=== PATIENT | female | born 1975 | race Caucasian/White ===

== ENCOUNTER 2018-10-27 16:06 | Outpatient (CLI) | payer MEDICAID ==
[2018-10-27 16:43] LABS: ADD MAN DIFF? NO
[2018-10-27 16:47] LABS: BASOPHILS % 0.3 % (0.0-2.0); EOSINOPHILS # 0.1 10^3/ul (0.0-0.5); EOSINOPHILS % 0.9 % (0.0-7.0); HEMATOCRIT 25.5 % (37.0-47.0); HEMOGLOBIN 7.6 g/dl (12.0-16.0); LYMPHOCYTES # 2.4 10^3/ul (0.8-2.9); LYMPHOCYTES % 26.4 % (15.0-51.0); MEAN CORPUSCULAR HEMOGLOBIN 20.4 pg (29.0-33.0); MEAN CORPUSCULAR HGB CONC 29.8 g/dl (32.0-37.0); MEAN CORPUSCULAR VOLUME 68.4 fl (82.0-101.0); MONOCYTE # 0.7 10^3/ul (0.3-0.9); MONOCYTES % 7.7 % (0.0-11.0); NEUTROPHIL # 5.9 10^3/ul (1.6-7.5); NEUTROPHILS % 64.2 % (39.0-77.0); PLATELET COUNT 319 10^3/UL (140-415); RED BLOOD COUNT 3.73 10^6/ul (4.20-5.40); RED CELL DISTRIBUTION WIDTH 17.5 % (11.5-14.5)
[2018-10-27 16:47] LABS: WHITE BLOOD COUNT 9.2 10^3/ul (4.8-10.8)
[2018-10-27 16:57] LABS: ADD UMIC YES; UR ASCORBIC ACID 40 mg/dL (NEGATIVE); UR BACTERIA FEW /HPF (NONE SEEN); UR BILIRUBIN (Dip) NEGATIVE (NEGATIVE); UR BLOOD (Dip) NEGATIVE (NEGATIVE); UR CLARITY CLOUDY (CLEAR); UR COLOR YELLOW (YELLOW); UR GLUCOSE (Dip) NEGATIVE (NEGATIVE); UR KETONES (Dip) 1+ mg/dL (NEGATIVE); UR LEUKOCYTE ESTERASE (Dip) NEGATIVE Leu/ul (NEGATIVE); UR NITRITE (Dip) NEGATIVE (NEGATIVE); UR RBC 1 /HPF (0-5); UR SPECIFIC GRAVITY (Dip) 1.018 (1.003-1.030); UR SQUAMOUS EPITHELIAL CELL MANY /HPF (FEW); UR TOTAL PROTEIN (Dip) NEGATIVE (NEGATIVE); UR UROBILINOGEN (Dip) NEGATIVE (NEGATIVE); UR WBC 21 /HPF (0-5)
[2018-10-27 17:06] LABS: INR 0.88; PT RATIO 0.9
[2018-10-27 17:07] LABS: PARTIAL THROMBOPLASTIN TIME 25.3 Sec (23.0-35.0)
[2018-10-27 17:09] LABS: ALANINE AMINOTRANSFERASE 17 IU/L (13-69); ALBUMIN 3.5 g/dl (3.3-4.9); ALBUMIN/GLOBULIN RATIO 0.94; ALKALINE PHOSPHATASE 105 IU/L (42-121); ANION GAP 9 (5-13); ASPARTATE AMINO TRANSFERASE 20 IU/L (15-46); BILIRUBIN,INDIRECT 0.3 mg/dl (0-1.1); BILIRUBIN,TOTAL 0.3 mg/dl (0.2-1.3); BLOOD UREA NITROGEN 15 mg/dl (7-20); CALCIUM 9.2 mg/dl (8.4-10.2); CARBON DIOXIDE 20 mmol/L (21-31); CHLORIDE 107 mmol/L (97-110); CREATININE 0.53 mg/dl (0.44-1.00); Estimated GFR > 60 mL/min (>60); GLUCOSE 92 mg/dl (70-220); POTASSIUM 4.1 mmol/L (3.5-5.1); SODIUM 136 mmol/L (135-144); TOTAL PROTEIN 7.2 g/dl (6.1-8.1); URIC ACID 2.9 mg/dl (3.1-7.9)
== END 2018-10-27 17:30 | disposition home or self-care (01) ==
LOC: OBT 16:06 → L-D 16:08 → OBT 17:30
DX: O13.3 Gestational [pregnancy-induced] hypertension without significant proteinuria, third trimester (principal); O24.419 Gestational diabetes mellitus in pregnancy, unspecified control; O36.8330 Maternal care for abnormalities of the fetal heart rate or rhythm, third trimester, not applicable or unspecified; O09.513 Supervision of elderly primigravida, third trimester; Z3A.34 34 weeks gestation of pregnancy
CPT/HCPCS: 76815; 76818; 80053; 81001; 84560; 85025; 85610; 85730

== ENCOUNTER 2018-10-29 09:50 | Inpatient (IN) | payer MEDICAID ==
[2018-10-29 11:47] LABS: ADD UMIC NO; UR ASCORBIC ACID 40 mg/dL (NEGATIVE); UR BACTERIA FEW /HPF (NONE SEEN); UR BILIRUBIN (Dip) NEGATIVE (NEGATIVE); UR BLOOD (Dip) NEGATIVE (NEGATIVE); UR CLARITY SLIGHTLY CLOUDY (CLEAR); UR COLOR AMBER (YELLOW); UR GLUCOSE (Dip) NEGATIVE (NEGATIVE); UR KETONES (Dip) 1+ mg/dL (NEGATIVE); UR LEUKOCYTE ESTERASE (Dip) NEGATIVE Leu/ul (NEGATIVE); UR MUCUS MODERATE /HPF (NONE SEEN); UR NITRITE (Dip) NEGATIVE (NEGATIVE); UR RBC 15 /HPF (0-5); UR SPECIFIC GRAVITY (Dip) 1.023 (1.003-1.030); UR SQUAMOUS EPITHELIAL CELL MODERATE /HPF (FEW); UR TOTAL PROTEIN (Dip) NEGATIVE (NEGATIVE); UR UROBILINOGEN (Dip) 2+ mg/dL (NEGATIVE); UR WBC 16 /HPF (0-5)
[2018-10-29 12:17] LABS: HEMOGLOBIN A1C 6.1 % (0-5.9)
[2018-10-29] MEDS ORDERED: DEXTROSE 50% 50 ML SYRINGE IV ×2 (14:30)
[2018-10-29] MEDS ORDERED: GLUCAGON 1 MG INJ IM (14:30)
[2018-10-29] MEDS ORDERED: GLUCOSE GEL 15 GRAM TUBE BUCCAL (14:30)
[2018-10-29] MEDS ORDERED: GLUCOSE GEL 15 GRAM TUBE PO ×2 (14:30)
[2018-10-29] MEDS: LACTATED RINGER'S 1,000 ML IV (17:28)
[2018-10-29 18:01] LABS: ALANINE AMINOTRANSFERASE 16 IU/L (13-69); ALBUMIN 3.3 g/dl (3.3-4.9); ALBUMIN/GLOBULIN RATIO 0.94; ALKALINE PHOSPHATASE 100 IU/L (42-121); ANION GAP 7 (5-13); ASPARTATE AMINO TRANSFERASE 19 IU/L (15-46); BILIRUBIN,INDIRECT 0.3 mg/dl (0-1.1); BILIRUBIN,TOTAL 0.3 mg/dl (0.2-1.3); BLOOD UREA NITROGEN 10 mg/dl (7-20); CALCIUM 8.7 mg/dl (8.4-10.2); CARBON DIOXIDE 22 mmol/L (21-31); CHLORIDE 106 mmol/L (97-110); CREATININE 0.35 mg/dl (0.44-1.00); Estimated GFR > 60 mL/min (>60); GLUCOSE 94 mg/dl (70-220); POTASSIUM 3.8 mmol/L (3.5-5.1); SODIUM 135 mmol/L (135-144); TOTAL PROTEIN 6.8 g/dl (6.1-8.1)
[2018-10-29] MEDS: FERROUS SULFATE (EC) 325 MG TAB PO (20:55)
[2018-10-29] MEDS: metFORMIN 500 MG TAB PO (20:59)
[2018-10-29] MEDS: METHYLDOPA 250 MG TAB PO (22:28)
[2018-10-30] MEDS: LACTATED RINGER'S 1,000 ML IV ×2 (00:10→06:08)
[2018-10-30] MEDS: METHYLDOPA 250 MG TAB PO ×4 (06:00→22:15)
[2018-10-30] MEDS: PRENATAL VITAMIN PO (08:48)
[2018-10-30] MEDS: FERROUS SULFATE (EC) 325 MG TAB PO ×2 (08:48→20:47)
[2018-10-30] MEDS: metFORMIN 500 MG TAB PO ×3 (08:49→20:48)
[2018-10-30 12:04] LABS: COLLECTION PERIOD 24 hrs
[2018-10-30 13:13] LABS: COLLECTION PERIOD 24 hrs; SCRET 0.35 mg/dl (0.44-1.00); VOLUME 3100 ml/24hrs
[2018-10-30 13:14] LABS: CREATININE CLEARANCE 177.9 mls/min (84.0-162.0); CREATININE,URINE RANDOM 28.93 mg/dl (20-320); VOLUME 3100 mls
[2018-10-30 13:22] LABS: ADD MAN DIFF? NO
[2018-10-30 13:24] LABS: WHITE BLOOD COUNT 7.3 10^3/ul (4.8-10.8)
[2018-10-30 13:24] LABS: BASOPHILS % 0.4 % (0.0-2.0); EOSINOPHILS # 0.1 10^3/ul (0.0-0.5); EOSINOPHILS % 1.2 % (0.0-7.0); HEMATOCRIT 25.2 % (37.0-47.0); HEMOGLOBIN 7.4 g/dl (12.0-16.0); LYMPHOCYTES % 27.9 % (15.0-51.0); MEAN CORPUSCULAR HEMOGLOBIN 20.2 pg (29.0-33.0); MEAN CORPUSCULAR HGB CONC 29.4 g/dl (32.0-37.0); MEAN CORPUSCULAR VOLUME 68.9 fl (82.0-101.0); MONOCYTE # 0.5 10^3/ul (0.3-0.9); MONOCYTES % 7.1 % (0.0-11.0); NEUTROPHIL # 4.6 10^3/ul (1.6-7.5); PLATELET COUNT 322 10^3/UL (140-415); RED BLOOD COUNT 3.66 10^6/ul (4.20-5.40); RED CELL DISTRIBUTION WIDTH 17.5 % (11.5-14.5)
[2018-10-30] MEDS: ACETAMINOPHEN 325 MG TAB PO (17:10)
[2018-10-31] MEDS: METHYLDOPA 250 MG TAB PO (05:57)
[2018-10-31] MEDS: PRENATAL VITAMIN PO (08:46)
[2018-10-31] MEDS: FERROUS SULFATE (EC) 325 MG TAB PO (08:46)
[2018-10-31] MEDS: metFORMIN 500 MG TAB PO (08:47)
== END 2018-10-31 12:48 | disposition home or self-care (01) | DRG 833 ==
LOC: OBT 09:50 → L-D 09:52 → OBT 13:00 → L-D 13:00 → PP1 14:34
DX: O10.913 Unspecified pre-existing hypertension complicating pregnancy, third trimester (principal); O24.419 Gestational diabetes mellitus in pregnancy, unspecified control; Z3A.35 35 weeks gestation of pregnancy
CPT/HCPCS: 76817; 76818; 80053; 81001; 81003; 82575; 82962; 83036; 84156; 85025; 87086

== ENCOUNTER 2018-11-04 08:38 | Outpatient (CLI) | payer MEDICAID | END 2018-11-04 11:00 | disposition home or self-care (01) | LOC: OBT 08:38 → L-D 08:39 → OBT 11:00 | DX: O24.419 Gestational diabetes mellitus in pregnancy, unspecified control (principal); O16.3 Unspecified maternal hypertension, third trimester; Z3A.33 33 weeks gestation of pregnancy | CPT/HCPCS: 76818 ==

== ENCOUNTER 2018-11-10 15:35 | Outpatient (CLI) | payer MEDICAID ==
[2018-11-10] MEDS: SOD CHLORIDE 0.9% 1,000 ML IV (16:33)
[2018-11-10] MEDS: SOD FERRIC GLUC COMPLX 125 MG in SOD CHLORIDE 0.9% 100 ML IVPB (18:16)
== END 2018-11-10 20:42 | disposition home or self-care (01) ==
LOC: OBT 15:35 → L-D 15:35 → OBT 20:42
DX: O99.013 Anemia complicating pregnancy, third trimester (principal); D64.9 Anemia, unspecified; O24.415 Gestational diabetes mellitus in pregnancy, controlled by oral hypoglycemic drugs; O16.3 Unspecified maternal hypertension, third trimester; Z3A.37 37 weeks gestation of pregnancy
CPT/HCPCS: 36415; 76818; 96360; 96361; 96367

== ENCOUNTER 2018-11-13 15:59 | Outpatient (CLI) | payer MEDICAID ==
[2018-11-13] MEDS ORDERED: morphine 10 MG INJ (18:33)
[2018-11-13] MEDS: LACTATED RINGER'S 1,000 ML IV (18:45)
[2018-11-13] MEDS: SOD FERRIC GLUC COMPLX 125 MG in SOD CHLORIDE 0.9% 100 ML IVPB (20:10)
[2018-11-13 20:11] LABS: ADD MAN DIFF? NO
[2018-11-13 20:12] LABS: ABNORMAL IP MESSAGE 1; BASOPHILS % 0.5 % (0.0-2.0); EOSINOPHILS # 0.1 10^3/ul (0.0-0.5); EOSINOPHILS % 1.5 % (0.0-7.0); HEMATOCRIT 25.3 % (37.0-47.0); HEMOGLOBIN 7.7 g/dl (12.0-16.0); LYMPHOCYTES # 2.5 10^3/ul (0.8-2.9); LYMPHOCYTES % 31.2 % (15.0-51.0); MEAN CORPUSCULAR HEMOGLOBIN 21.6 pg (29.0-33.0); MEAN CORPUSCULAR HGB CONC 30.4 g/dl (32.0-37.0); MEAN CORPUSCULAR VOLUME 71.1 fl (82.0-101.0); MEAN PLATELET VOLUME 8.9 fl (7.4-10.4); MONOCYTE # 0.5 10^3/ul (0.3-0.9); MONOCYTES % 6.1 % (0.0-11.0); NEUTROPHIL # 4.8 10^3/ul (1.6-7.5); NEUTROPHILS % 60.2 % (39.0-77.0); PLATELET COUNT 267 10^3/UL (140-415); RED BLOOD COUNT 3.56 10^6/ul (4.20-5.40); RED CELL DISTRIBUTION WIDTH 23.3 % (11.5-14.5)
[2018-11-13 20:20] LABS: ADD UMIC NO; UR ASCORBIC ACID 40 mg/dL (NEGATIVE); UR BACTERIA FEW /HPF (NONE SEEN); UR BILIRUBIN (Dip) NEGATIVE (NEGATIVE); UR BLOOD (Dip) NEGATIVE (NEGATIVE); UR CLARITY SLIGHTLY CLOUDY (CLEAR); UR COLOR YELLOW (YELLOW); UR GLUCOSE (Dip) NEGATIVE (NEGATIVE); UR KETONES (Dip) TRACE mg/dL (NEGATIVE); UR LEUKOCYTE ESTERASE (Dip) NEGATIVE Leu/ul (NEGATIVE); UR MUCUS FEW /HPF (NONE SEEN); UR NITRITE (Dip) NEGATIVE (NEGATIVE); UR RBC 0 /HPF (0-5); UR SPECIFIC GRAVITY (Dip) 1.018 (1.003-1.030); UR SQUAMOUS EPITHELIAL CELL FEW /HPF (FEW); UR TOTAL PROTEIN (Dip) NEGATIVE (NEGATIVE); UR UROBILINOGEN (Dip) 2+ mg/dL (NEGATIVE); UR WBC 1 /HPF (0-5)
[2018-11-13 20:24] LABS: POSITIVE DIFF @See below
[2018-11-13 20:34] LABS: RUPTURE FETAL MEMBRANES NEGATIVE (NEGATIVE)
== END 2018-11-13 21:38 | disposition home or self-care (01) ==
LOC: OBT 15:59 → L-D 15:59 → OBT 21:38
DX: O99.013 Anemia complicating pregnancy, third trimester (principal); O09.523 Supervision of elderly multigravida, third trimester; Z3A.37 37 weeks gestation of pregnancy
CPT/HCPCS: 36415; 76818; 81001; 81003; 84112; 85025; 96360; 96361; 96365

== ENCOUNTER 2018-11-21 05:17 | Inpatient (IN) | payer MEDICAID ==
[2018-11-21 06:19] LABS: ADD MAN DIFF? NO
[2018-11-21 06:26] LABS: ABNORMAL IP MESSAGE 1; BASOPHILS % 0.6 % (0.0-2.0); EOSINOPHILS # 0.1 10^3/ul (0.0-0.5); EOSINOPHILS % 1.9 % (0.0-7.0); LYMPHOCYTES # 2.4 10^3/ul (0.8-2.9); LYMPHOCYTES % 32.8 % (15.0-51.0); MEAN CORPUSCULAR HEMOGLOBIN 21.8 pg (29.0-33.0); MEAN CORPUSCULAR VOLUME 72.6 fl (82.0-101.0); MEAN PLATELET VOLUME 10.3 fl (7.4-10.4); MONOCYTE # 0.6 10^3/ul (0.3-0.9); MONOCYTES % 8.7 % (0.0-11.0); NEUTROPHILS % 55.6 % (39.0-77.0); PLATELET COUNT 265 10^3/UL (140-415); RED BLOOD COUNT 4.13 10^6/ul (4.20-5.40)
[2018-11-21 06:26] LABS: WHITE BLOOD COUNT 7.2 10^3/ul (4.8-10.8)
[2018-11-21] MEDS ORDERED: AMPICILLIN 2 GM/NS (PMX) 100 ML IV (06:30)
[2018-11-21] MEDS ORDERED: OXYTOCIN 30 UNITS/LR 500 ML IV (06:30)
[2018-11-21] MEDS ORDERED: METHYLERGONOVINE 0.2 MG INJ IM (06:30)
[2018-11-21] MEDS ORDERED: MISOPROSTOL 200 MCG TAB PR (06:30)
[2018-11-21] MEDS ORDERED: CARBOPROST 250 MCG INJ IM (06:30)
[2018-11-21 06:40] LABS: INR 0.86; PROTIME 11.8 Sec (11.9-14.9); PT RATIO 0.9
[2018-11-21 06:41] LABS: PARTIAL THROMBOPLASTIN TIME 26.4 Sec (23.0-35.0)
[2018-11-21 06:49] LABS: POSITIVE DIFF @See below
[2018-11-21] MEDS ORDERED: METHYLERGONOVINE 0.2 MG INJ (07:00)
[2018-11-21] MEDS ORDERED: PHENYLephrine (100 MCG/ML) 10ML SYG (07:00)
[2018-11-21] MEDS: LACTATED RINGER'S 1,000 ML IV ×3 (07:59→15:15)
[2018-11-21] MEDS ORDERED: CEFAZOLIN 2 GM/50 ML (PMX) 50 ML IVPB (08:00)
[2018-11-21] MEDS: CITRIC ACID/NA CITRATE 30 ML CUP PO (08:01)
[2018-11-21] MEDS ORDERED: morphine SULFATE/PF (10 MG/10 ML) INJ (08:22)
[2018-11-21] MEDS ORDERED: BUPIVACAINE 0.75%/DEXT (SPINAL) 2 ML INJ (08:25)
[2018-11-21] MEDS: CEFAZOLIN 2 GM/50 ML (PMX) 50 ML IVPB (08:35)
[2018-11-21] MEDS ORDERED: OXYTOCIN 10 UNIT INJ ×2 (08:54→09:09)
[2018-11-21] MEDS ORDERED: MIDAZOLAM 1 MG/ML 2 ML INJ IV (09:00)
[2018-11-21] MEDS ORDERED: DIPHENHYDRAMINE 50 MG INJ IV ×2 (09:00)
[2018-11-21] MEDS ORDERED: ZOLPIDEM 5 MG TAB PO (09:00)
[2018-11-21] MEDS ORDERED: NALOXONE (0.4 MG/ML) INJ IV (09:00)
[2018-11-21] MEDS ORDERED: MIDAZOLAM 1 MG/ML 2 ML INJ (09:00)
[2018-11-21] MEDS ORDERED: HYDROmorphONE 0.5 MG/0.5 ML SYG IV ×2 (09:00)
[2018-11-21] MEDS ORDERED: NALBUPHINE HCL (10 MG/1 ML) INJ IV (09:00)
[2018-11-21] MEDS ORDERED: LORAZEPAM 2 MG INJ IV (09:00)
[2018-11-21] MEDS ORDERED: MEPERIDINE 25 MG INJ IV (09:00)
[2018-11-21] MEDS ORDERED: ONDANSETRON 4 MG INJ (09:02)
[2018-11-21] MEDS: OXYTOCIN 30 UNITS/LR 500 ML IV (10:22)
[2018-11-21] MEDS: ONDANSETRON 4 MG INJ IV ×2 (10:29→16:16)
[2018-11-21] MEDS ORDERED: morphine 2 MG INJ IV (10:30)
[2018-11-21] MEDS ORDERED: ONDANSETRON 4 MG INJ IV ×2 (10:30)
[2018-11-21] MEDS ORDERED: BISACODYL 10 MG SUPP PR (10:30)
[2018-11-21] MEDS ORDERED: IBUPROFEN 600 MG TAB NGT (10:30)
[2018-11-21] MEDS ORDERED: PROMETHAZINE (1.25 MG/ML) 5 ML CUP PO (12:00)
[2018-11-21] MEDS: PROMETHAZINE 25 MG TAB PO (12:02)
[2018-11-21] MEDS: SCOPOLAMINE 1.5 MG PATCH TRANSDERM (13:39)
[2018-11-21 14:57] LABS: RAPID PLASMA REAGIN NONREACTIVE (NR)
[2018-11-21] MEDS ORDERED: GLUCAGON 1 MG INJ IM (15:30)
[2018-11-21] MEDS ORDERED: GLUCOSE GEL 15 GRAM TUBE PO ×2 (15:30)
[2018-11-21] MEDS ORDERED: GLUCOSE GEL 15 GRAM TUBE BUCCAL (15:30)
[2018-11-21] MEDS ORDERED: DEXTROSE 50% 50 ML SYRINGE IV ×2 (15:30)
[2018-11-21] MEDS: CEFAZOLIN 1 GM/50 ML (PMX) 50 ML IVPB (16:16)
[2018-11-21] MEDS: ACCU-CHEK XX ×2 (18:10→21:00)
[2018-11-21] MEDS: metFORMIN 500 MG TAB PO (18:10)
[2018-11-21] MEDS ORDERED: CARBOPROST 250 MCG INJ (20:00)
[2018-11-21] MEDS: METHYLDOPA 250 MG TAB PO (22:33)
[2018-11-22] MEDS: CEFAZOLIN 1 GM/50 ML (PMX) 50 ML IVPB ×2 (00:27→08:37)
[2018-11-22] MEDS: LACTATED RINGER'S 1,000 ML IV ×2 (00:33→07:30)
[2018-11-22] MEDS: KETOROLAC 30 MG INJ IV (05:11)
[2018-11-22] MEDS: METHYLDOPA 250 MG TAB PO ×2 (06:12→14:30)
[2018-11-22 06:47] LABS: ADD MAN DIFF? NO
[2018-11-22 06:55] LABS: ABNORMAL IP MESSAGE 1; BASOPHILS % 0.3 % (0.0-2.0); EOSINOPHILS # 0.1 10^3/ul (0.0-0.5); EOSINOPHILS % 0.5 % (0.0-7.0); HEMATOCRIT 27.8 % (37.0-47.0); HEMOGLOBIN 8.3 g/dl (12.0-16.0); LYMPHOCYTES # 2.2 10^3/ul (0.8-2.9); LYMPHOCYTES % 22.1 % (15.0-51.0); MEAN CORPUSCULAR HEMOGLOBIN 21.8 pg (29.0-33.0); MEAN CORPUSCULAR HGB CONC 29.9 g/dl (32.0-37.0); MEAN CORPUSCULAR VOLUME 73.2 fl (82.0-101.0); MEAN PLATELET VOLUME 10.3 fl (7.4-10.4); MONOCYTE # 0.8 10^3/ul (0.3-0.9); NEUTROPHIL # 6.8 10^3/ul (1.6-7.5); NEUTROPHILS % 68.7 % (39.0-77.0); PLATELET COUNT 253 10^3/UL (140-415); RED CELL DISTRIBUTION WIDTH 27.9 % (11.5-14.5)
[2018-11-22 07:02] LABS: POSITIVE DIFF @See below
[2018-11-22 08:06] LABS: ALANINE AMINOTRANSFERASE 16 IU/L (13-69); ALBUMIN 2.6 g/dl (3.3-4.9); ALBUMIN/GLOBULIN RATIO 0.92; ALKALINE PHOSPHATASE 73 IU/L (42-121); ANION GAP 4 (5-13); ASPARTATE AMINO TRANSFERASE 23 IU/L (15-46); BILIRUBIN,INDIRECT 0.4 mg/dl (0-1.1); BILIRUBIN,TOTAL 0.4 mg/dl (0.2-1.3); BLOOD UREA NITROGEN 8 mg/dl (7-20); CALCIUM 8.2 mg/dl (8.4-10.2); CARBON DIOXIDE 27 mmol/L (21-31); CHLORIDE 103 mmol/L (97-110); CREATININE 0.43 mg/dl (0.44-1.00); Estimated GFR > 60 mL/min (>60); GLUCOSE 72 mg/dl (70-220); POTASSIUM 3.5 mmol/L (3.5-5.1); SODIUM 134 mmol/L (135-144); TOTAL PROTEIN 5.4 g/dl (6.1-8.1)
[2018-11-22] MEDS: ACCU-CHEK XX ×4 (08:34→21:50)
[2018-11-22] MEDS: metFORMIN 500 MG TAB PO ×2 (08:37→17:53)
[2018-11-22] MEDS: OXYCODONE/ACETAMINOPHEN (5/325) TAB PO ×4 (10:37→23:07)
[2018-11-22] MEDS: IBUPROFEN 600 MG TAB PO ×2 (12:39→17:53)
[2018-11-22] MEDS: MAGNESIUM HYDROXIDE 30ML CUP PO (21:16)
[2018-11-22] MEDS: SENNA/DOCUSATE NA (8.6MG/50MG) TAB PO (21:16)
[2018-11-23] MEDS: IBUPROFEN 600 MG TAB PO ×4 (00:09→21:14)
[2018-11-23] MEDS: MAGNESIUM HYDROXIDE 30ML CUP PO (08:33)
[2018-11-23] MEDS: SENNA/DOCUSATE NA (8.6MG/50MG) TAB PO (08:33)
[2018-11-23] MEDS: ACCU-CHEK XX ×3 (08:40→17:57)
[2018-11-23] MEDS: metFORMIN 500 MG TAB PO ×2 (09:06→17:59)
[2018-11-23] MEDS: DOCUSATE SODIUM 100 MG CAP PO (21:14)
[2018-11-23] MEDS: OXYCODONE/ACETAMINOPHEN (5/325) TAB PO (21:15)
[2018-11-24] MEDS: OXYCODONE/ACETAMINOPHEN (5/325) TAB PO ×2 (02:26→08:55)
[2018-11-24] MEDS: IBUPROFEN 600 MG TAB PO ×2 (05:11→12:02)
[2018-11-24] MEDS: ACCU-CHEK XX (08:46)
[2018-11-24] MEDS: metFORMIN 500 MG TAB PO (08:54)
[2018-11-24] MEDS: DOCUSATE SODIUM 100 MG CAP PO (08:55)
== END 2018-11-24 14:15 | disposition home or self-care (01) | DRG 784 ==
LOC: L-D 05:17 → PP1 12:55
PROVIDERS: Obstetrics & Gynecology
PROC: 10D00Z1 Extraction of Products of Conception, Low, Open Approach (ICD-10-PCS; principal; 2018-11-22)
PROC: 0UT70ZZ Resection of Bilateral Fallopian Tubes, Open Approach (ICD-10-PCS; 2018-11-22)
DX: O65.5 Obstructed labor due to abnormality of maternal pelvic organs (principal); O10.92 Unspecified pre-existing hypertension complicating childbirth; O34.211 Maternal care for low transverse scar from previous cesarean delivery; O24.429 Gestational diabetes mellitus in childbirth, unspecified control; O99.02 Anemia complicating childbirth; Z3A.38 38 weeks gestation of pregnancy; Z37.0 Single live birth; Z30.2 Encounter for sterilization
CPT/HCPCS: 80053; 82962; 85025; 85610; 85730; 86592; 86850; 86900; 86901; 88302; 99464